=== PATIENT | male | born 1950 | race Caucasian/White ===

== ENCOUNTER 2019-09-01 00:23 | Day surgery (SDC) | payer BC, MEDICARE, SELFPAY ==
[2019-08-28 13:05] VITALS: BMI 24.5
[2019-09-01 10:19] VITALS: BMI 24.0
[2019-09-01] MEDS: LACTATED RINGERS 1,000 ML 150 ML IV CONT (10:33)
[2019-09-01 10:36] VITALS: BP 125/86; PULSE 81; RESP 18; TEMP 36.6; O2SAT 99; BMI 24.0
--- NOTE | 2019-09-01 11:07 | PM.HPGS ---
History of Present Illness History of Present Illness Consent: Risks, benefits, and alternatives have been discussed and questions answered. Patient agrees to proceed with procedure. Chief complaint: Neoplasm Screening/ Hx Colon Polyps Narrative: Darryl Collins is a 69 year old W male undergoing colonoscopy secondary history of colonic polyps. Patient had a colonoscopy 7 years ago however the bowel prep was extremely poor patient is to come back follow year but did not do so even after letter was sent. Patient is asymptomatic. There is no family history of colon polyps or colon cancer. [facility] Past Medical History Medical History History of ischemic stroke without residual deficits PAD (peripheral artery disease) Surgical History Surgical History History of facial surgery S/P CABG (coronary artery bypass graft) Family History Family History Mother Family history of lung cancer, Onset Age: 61 Family history of alcoholism Sibling Patient's sister is in good health Patient's brother is in good health Grandparent Family history of lung cancer, Onset Age: 66 Diabetes mellitus Other Depression Family history of allergic disorder Family history of irritable bowel syndrome Family history of thyroid disease Social History Social History Smoking status: Former smoker Tobacco type: smokeless tobacco Smoking end date: 07/12/17 Alcohol intake: never Substance use: current Substance use type: marijuana Meds Home Medications and Allergies Home Medications Medication Instructions Recorded Confirmed Type amitriptyline 100 mg tablet 100 mg PO .[facility] tablet 07/13/19 08/28/19 Rx finasteride 5 mg tablet 5 mg PO DAILY 07/25/19 08/28/19 History folic acid 1 mg tablet 1 mg PO DAILY 07/25/19 08/28/19 History lisinopril 20 mg tablet 20 mg PO DAILY 07/25/19 08/28/19 History sertraline 100 mg tablet 150 mg PO DAILY tablet 07/25/19 08/28/19 History aspirin 325 mg tablet 325 mg PO DAILY 07/26/19 08/28/19 History atorvastatin 40 mg PO DAILY 08/28/19 08/28/19 History Allergies Allergy/AdvReac Type Severity Reaction Status Date / Time No Known Allergies Allergy Verified 08/28/19 13:12 Vital Signs Vital Signs - 24 hr 09/01/19 10:36 Temperature 36.6 C Pulse Rate 81 Respiratory Rate 18 Blood Pressure 125/86 Pulse Oximetry 99 Exam Const: Orientation/consciousness: patient oriented x3 Resp: Auscultation: clear to auscultation bilaterally Cardio: Rate: regular rate Rhythm: regular rhythm Heart sounds: no murmurs GI: GI Palp: Yes Soft to palpation, No Tenderness to palpation present (GI), Yes No hepatosplenomegaly present and No Palpable mass present Auscultation: normal bowel sounds Neuro: General: patient oriented x3 and no focal motor deficits Extrem: General: no pedal edema Assessment and Plan Additional Plan Screening colonoscopy secondary history of colonic polyps and extremely poor bowel prep on previous exam
[2019-09-01 11:58] VITALS: BP 93/62; PULSE 65; RESP 16; O2SAT 95
[2019-09-01 12:08] VITALS: BP 103/65; PULSE 60; RESP 20; O2SAT 98
[2019-09-01 12:18] VITALS: BP 122/72; PULSE 60; RESP 20; O2SAT 98
[2019-09-01 12:28] VITALS: BP 120/70; PULSE 56; RESP 20; O2SAT 98
== END 2019-09-01 12:35 | disposition home or self-care (01) ==
PROVIDERS: PCP Family Medicine; Visit Provider Internal Medicine Gastroenterology
PROC: 0DJD8ZZ Inspection of Lower Intestinal Tract, Via Natural or Artificial Opening Endoscopic (ICD-10-PCS; CPT 45378; principal; 2019-09-01 11:30)
DX: Z12.11 Encounter for screening for malignant neoplasm of colon (principal); D12.0 Benign neoplasm of cecum; I73.9 Peripheral vascular disease, unspecified; Z86.73 Personal history of transient ischemic attack (TIA), and cerebral infarction without residual deficits; Z95.1 Presence of aortocoronary bypass graft; F12.90 Cannabis use, unspecified, uncomplicated; Z87.891 Personal history of nicotine dependence; Z79.82 Long term (current) use of aspirin
CPT/HCPCS: 45380; 88305; J2704; J7120

== ENCOUNTER 2020-03-20 21:37 | Emergency (ER) | payer BC, SELFPAY ==
--- NOTE | ~2020-03-20 | CT_ITS ---
EXAMINATION: CT abd pelvis lumbar wo con DATE: 03/21/2020 01:14 INDICATION: Right-sided abdominal and right flank pain, severe low back pain for 3 weeks TECHNIQUE: Computed tomography (CT) of the abdomen, pelvis and lumbar spine was performed without int ravenous contrast. Automated exposure control and iterative reconstruction technique were employed. E xam dose: 263.39 mGy-cm total exam DLP. COMPARISON: None FINDINGS: There are scattered mild patchy infiltrates involving the middle lobe, lingula and left low er lobe and discoid atelectasis or scarring at the lung bases bilaterally. Status post sternotomy. Normal heart size. No pericardial or pleural effusion. Small sliding hiatal hernia. The liver, gallbladder, bile ducts, spleen, pancreas and pancreatic duct are unremarkable. The right adrenal gland is unremarkable. There is hypertrophy or possibly a small likely adenoma of t he left adrenal gland.. No renal mass lesion is evident on this limited noncontrast examination. No urinary tract calculus or hydroureteronephrosis. The urinary bladder, seminal vesicles and prostate gland are unremarkable. Bilateral small fat-containing inguinal hernias. There is extensive calcification of the abdominal aorta and branches. Infrarenal fusiform abdominal a ortic aneurysm measuring up to 3.3 cm diameter. Bilateral common iliac artery stents. There is extens kamryn calcification of the iliac and femoral arteries. Normal appendix. There is a prominent of fecal material within the colon. Liquid stool is identified in the cecum and ascending colon. No bowel obstruction, bowel wall thickening, pneumatosis or intrape ritoneal free air is detected. There are bilateral pars interarticularis defects at L5-S1 with associated grade 1 anterolisthesis at L5-S1. Diffuse osteopenia. There is moderately prominent degenerative disc disease at L3-4, L4-5 and L5-S1, with posterior disc bulging at L3-4 and L4-5 as well as L5-S1. There is degenerative change at the apophyseal joints of the lumbar spine. No lumbar spine fracture is noted otherwise. IMPRESSION: Patchy bilateral lower lung pulmonary infiltrates, bilateral discoid atelectasis or scar ring at the lung bases Small sliding hiatal hernia Infrarenal 3.3 cm abdominal aortic aneurysm; bilateral common iliac artery stents Extensive atherosclerotic calcification Bilateral L5 pars intra-articular is defects with associated grade 1 anterolisthesis at L5-S1 Posterior disc bulging at L3-4 through L5-S1 Reviewed, dictated and finalized at [facility]. Reviewed, dictated and finalized at location A. IMPRESSION: Patchy bilateral lower lung pulmonary infiltrates, bilateral disco id atelectasis or scarring at the lung bases Small sliding hiatal hernia Infrarenal 3.3 cm abdominal aortic aneurysm; bilateral common iliac artery sten ts Extensive atherosclerotic calcification Bilateral L5 pars intra-articular is defects with associated grade 1 anterolist hesis at L5-S1 Posterior disc bulging at L3-4 through L5-S1
[2020-03-20 21:56] VITALS: BP 123/68; PULSE 83; RESP 16; TEMP 37.7; O2SAT 96
[2020-03-21] VITALS (9 sets, daily range): BP systolic 126–149; BP diastolic 68–104; PULSE 71–91; RESP 16–21; TEMP 36.6–36.7; O2SAT 94–100
--- NOTE | 2020-03-21 00:32 | ED.BACK ---
HPI - Back Pain/Injury General Chief Complaint: Back Pain/Injury Stated Complaint: lower back pain Time Seen by Provider: 03/21/20 00:27 History of Present Illness HPI Narrative: Lower back and abdominal pain for the past 3 weeks. Radiates into lower abdomen. Worse with movement. Additionally urinating frequently. No trauma, fever, nausea, dysuria, leg weakness. Related Data Home Medications Medication Instructions Recorded Confirmed lisinopril 20 mg tablet 20 mg PO DAILY 07/25/19 08/28/19 aspirin 325 mg tablet 325 mg PO DAILY 07/26/19 08/28/19 Allergies Allergy/AdvReac Type Severity Reaction Status Date / Time No Known Allergies Allergy Verified 03/29/20 12:41 Review of Systems Review of Systems: All systems reviewed & are unremarkable except as noted in HPI and below Constitutional: Constitutional: Denies fever(s) and Denies weakness ENT: Denies dizziness Cardiovascular: Cardiovascular: Denies chest pain Respiratory: Respiratory: Denies dyspnea Gastrointestinal: Gastrointestinal: Reports abdominal pain Genitourinary: Genitourinary: Denies dysuria and Reports urinary frequency Musculoskeletal: Musculoskeletal: Reports back pain Neurologic: Denies numbness and Denies weakness [facility] Past Medical History Medical History History of ischemic stroke without residual deficits PAD (peripheral artery disease) Surgical History Surgical History History of facial surgery S/P CABG (coronary artery bypass graft) Family History Family History Mother Family history of lung cancer, Onset Age: 61 Family history of alcoholism Sibling Patient's sister is in good health Patient's brother is in good health Grandparent Family history of lung cancer, Onset Age: 66 Diabetes mellitus Other Depression Family history of allergic disorder Family history of irritable bowel syndrome Family history of thyroid disease Social History Social History Smoking status: Former smoker Tobacco type: smokeless tobacco Smoking end date: 07/12/17 Alcohol intake: never Substance use: current Substance use type: marijuana Exam Const: General: no acute distress and alert Nutritional Appearance: thin Orientation/consciousness: patient oriented x3 HENMT: Head: normal to inspection Resp: Effort & Inspection: normal respiratory effort Auscultation: clear to auscultation bilaterally Cardio: Rate: regular rate Rhythm: regular rhythm GI: Other: Suprapubic tenderness Back/Spine/Pelvis: Other: bilateral lower lumbar tenderness Skin: General skin exam: normal color Neuro: General: patient oriented x3, no focal motor deficits and CN's II-XI intact bilaterally Speech: normal speech Gait exam (Neuro): Normal gait present Extrem: General: normal to inspection Course Vital Signs Vital signs: Vital Signs Temperature 37.7 C H 03/20/20 21:56 Pulse Rate 83 03/20/20 21:56 Respiratory Rate 16 03/20/20 21:56 Blood Pressure 123/68 03/20/20 21:56 Pulse Oximetry 96 03/20/20 21:56 Temperature 36.7 C 03/21/20 05:42 Pulse Rate 74 03/21/20 05:42 Respiratory Rate 16 03/21/20 05:42 Blood Pressure 133/86 03/21/20 05:42 Pulse Oximetry 97 03/21/20 05:42 MDM - Back Pain/Injury MDM Narrative Medical decision making narrative: CT show patchy infiltrates. He is denying any respiratory symptoms at this time. He has a 3.3 cm aortic aneurysm, which I do not suspect is the cause of his pain. Bedside US showed a moderate amount of urine in the bladder post void. He had some relief of his symptoms after santacruz placement. Differential Diagnosis Differential diagnosis: Likely strain of lumbar region and other; Unlikely pyelonephritis Medical Records Attestation:
[2020-03-21 01:06] LABS: Basophils Percent Auto 0.2 % (0.2-1.2); Immature Granulocyte Absolute 0.05 K/mm3 (0.00-0.031); Immature Granulocyte Percent A 0.6 % (0-0.5); Lymphocytes Absolute Auto 0.72 K/mm3 (0.9-3.2); Lymphocytes Percent Auto 8.7 % (18.3-44.2); Mean Corpuscular HGB Conc 34.3 g/dl (32-36); Mean Corpuscular Hemoglobin 28.2 pg (26-34); Mean Corpuscular Volume 82.4 fl (80-100); Mean Platelet Volume 9.4 fl (7.4-10.4); Monocytes Absolute Auto 0.6 K/mm3 (0.1-0.6); Monocytes Percent Auto 7.3 % (2.6-8.5); Neutrophils Absolute Auto 6.9 K/mm3 (1.3-6.7); Neutrophils Percent Auto 83.2 % (45.5-73.1); Platelet Count Result 310 k/mm3 (150-375); Red Blood Count 4.25 M/mm3 (4.6-6.20); White Blood Count 8.3 K/mm3 (4.5-10.0)
[2020-03-21] MEDS: SODIUM CHLORIDE 0.9% IV 1,000 ML 999 ML IV CONT (01:09)
[2020-03-21 01:19] LABS: Alanine Aminotransferase 20 U/L (4-50); Albumin Level 3.9 g/dL (3.5-5.1); Alkaline Phosphatase 100 U/L (38-126); Anion Gap 10 mmol/L (8-16); Aspartate Amino Transferase 41 U/L (17-59); Bilirubin,Total 0.7 mg/dL (0.2-1.3); Blood Urea Nitrogen 17 mg/dL (9-20); Calcium 8.5 mg/dL (8.4-10.2); Carbon Dioxide 24 mmol/L (22-30); Chloride 96 mmol/L (98-107); Estimated CRCL calculation 55 ml/min; Estimated Glomerular Filt Rate > 60; Glucose 127 mg/dL (75-110); Lipase 63 U/L (23-300); Potassium 3.6 mmol/L (3.4-5.0); Sodium 130 mmol/L (137-145)
[2020-03-21 03:34] LABS: Add Urine Microscopic? YES; Appearance Urine Clear (Clear); Bacteria Urine Trace /hpf; Bilirubin Urine Negative (Negative); Blood Urine Negative (Negative); Color Urine Yellow (Yellow); Glucose Urine UA Negative (Negative); Ketones Urine Negative (Negative); Leukocyte Esterase Ur Negative LEU/UL (Negative); Mucus Urine Few /lpf; Nitrate Urine Negative (Negative); Protein Urine 1+ mg/dL (Negative); RBC Urine 0-2 /hpf (0-2); Squamous Epithelial Cell Urine Rare /hpf (Few)
--- NOTE | 2020-03-21 05:25 | PC.NURSE ---
Dior drainge changed to leg bag--demonstration for care and emptying given. Patient voiced understanding
== END 2020-03-21 05:42 | disposition home or self-care (01) ==
PROVIDERS: Emergency Provider Emergency Medicine; PCP Family Medicine
DX: R33.9 Retention of urine, unspecified (principal); I25.10 Atherosclerotic heart disease of native coronary artery without angina pectoris; Z95.1 Presence of aortocoronary bypass graft; Z86.73 Personal history of transient ischemic attack (TIA), and cerebral infarction without residual deficits; I73.9 Peripheral vascular disease, unspecified; Z87.891 Personal history of nicotine dependence; R91.8 Other nonspecific abnormal finding of lung field; K44.9 Diaphragmatic hernia without obstruction or gangrene; I71.4 Abdominal aortic aneurysm, without rupture; M51.26 Other intervertebral disc displacement, lumbar region; M51.27 Other intervertebral disc displacement, lumbosacral region
CPT/HCPCS: 36415; 51702; 72133; 74176; 80053; 81001; 83690; 85025; 96360; 99284; J7030

== ENCOUNTER 2020-03-29 12:26 | Emergency (ER) | payer BC, SELFPAY ==
--- NOTE | ~2020-03-29 | XR_ITS ---
XR chest 1V portable 03/29/2020 14:11 Indication: Covid. Weakness. Procedure: AP portable chest Comparison: 09/14/2005 Findings: Status post median sternotomy for CABG. Heart size normal. Extensive bilateral interstitial infiltrates with focal consolidation left lung base. No pleural effusion or pneumothorax. Impression: 1: Extensive diffuse interstitial infiltration with focal consolidation left lung base which may repr esent a combination of edema, pneumonia and/or atelectasis. Reviewed, dictated and finalized at location B. Impression: 1: Extensive diffuse interstitial infiltration with focal consolidation left kasia ng base which may represent a combination of edema, pneumonia and/or atelectasi s.
[2020-03-29 12:34] VITALS: BP 149/96; PULSE 69; RESP 22; TEMP 36.8; O2SAT 100
[2020-03-29 13:33] VITALS: BP 165/108; PULSE 73; RESP 20; O2SAT 98
--- NOTE | 2020-03-29 13:33 | ED.GENADULT ---
HPI - General Adult General Chief complaint: Unspecified Stated complaint: covid + with weakness Time Seen by Provider: 03/29/20 12:28 Source: patient and family Limitations: no limitations History of Present Illness HPI narrative: 69-year-old male He was here about 9 days ago and had a Dior catheter placed for urinary retention He had URI symptoms and body aches a week ago and had a positive COVID test done at the [place] [facility] window 2 days after that Today he presented via EMS because of continued muscle aches which are mostly in his low back and also buttocks, and a headache Notably he continues to have a little bit of a cough but is nonproductive and he does not have shortness of breath No neck pain no neuro symptoms no GI symptoms He still has the Dior in to a leg bag Onset (ago): day(s) Location: back and buttocks Radiation: non-radiation Severity: moderate Related Data Home Medications Medication Instructions Recorded Confirmed lisinopril 20 mg tablet 20 mg PO DAILY 07/25/19 08/28/19 aspirin 325 mg tablet 325 mg PO DAILY 07/26/19 08/28/19 Allergies Allergy/AdvReac Type Severity Reaction Status Date / Time No Known Allergies Allergy Verified 03/29/20 12:41 Review of Systems Review of Systems: All systems reviewed & are unremarkable except as noted in HPI and below Constitutional: Constitutional: Denies chills, Reports fatigue, Denies fever(s), Denies headache(s) and Denies night sweats Eyes: Eyes: Denies change in vision, Denies loss of vision and Denies other visual disturbances ENT: Denies headache(s), Denies hoarseness, Denies epistaxis, Denies nasal congestion and Denies sore throat Cardiovascular: Cardiovascular: Denies chest pain, Denies leg edema, Denies palpitations and Denies dyspnea Respiratory: Respiratory: Reports cough, Denies dyspnea and Denies wheezing Gastrointestinal: Gastrointestinal: Denies abdominal pain, Denies diarrhea, Denies nausea and Denies vomiting Genitourinary: Genitourinary: Denies hematuria, Reports dysuria and Denies urinary frequency Musculoskeletal: Musculoskeletal: Denies abnormal gait, Reports back pain, Denies deformity, Reports arthralgias, Denies joint swelling, Denies muscle weakness and Denies numbness Integumentary/Breasts: Skin/Breast: Denies rash, Denies unusual bruising and Denies wounds Neurologic: Denies abnormal gait, Denies headache(s), Denies focal weakness, Denies loss of vision and Denies numbness Psychiatric: Psychiatric: Reports no additional psychiatric complaints Endocrine: Endocrine: Denies fatigue and Denies palpitations Hematologic/Lymphatic: Hematologic/Lymphatic: Denies easy bleeding and Denies easy bruising Allergic/Immunologic: Allergic/Immunologic: Denies wheezing [facility] Social History Social History Smoking status: Former smoker Tobacco type: smokeless tobacco Smoking end date: 07/12/17 Alcohol intake: never Substance use: current Substance use type: marijuana Exam Const: General: no acute distress and well developed Nutritional Appearance: thin Orientation/consciousness: patient oriented x3 (alert) and Other orientation findings (Alert) HENMT: Head: normocephalic and atraumatic Ears: external ears normal General nose exam: No nasal discharge present and no epistaxis Face and sinus: face symmetric Mouth: Yes tongue normal and Yes moist mucous membranes Throat: other (No exudate, no erythema) Eyes: Conjunctivae: conjunctivae normal Sclera: sclerae normal EOM: EOMs intact bilaterally Neck: Neck: full ROM, no lymphadenopathy and supple Thyroid: thyroid normal Chest: Chest palpation & inspection: no tenderness Resp: Effort & Inspection: normal respiratory effort Auscultation: clear to auscultation bilaterally, no rales, no rhonchi, no wheezes and other (breath sounds equal) Cardio: Rate: regular rate Rhythm: regular rhythm
[2020-03-29 13:40] LABS: Basophils Percent Auto 0.3 % (0.2-1.2); Eosinophils Absolute Auto 0.1 K/mm3 (0-0.3); Eosinophils Percent Auto 0.9 % (0-4.4); Hematocrit 31.7 % (42.0-52.0); Hemoglobin 10.8 g/dL (14.0-18.0); Immature Granulocyte Percent A 0.9 % (0-0.5); Lymphocytes Absolute Auto 0.81 K/mm3 (0.9-3.2); Mean Corpuscular HGB Conc 34.1 g/dl (32-36); Mean Corpuscular Volume 82.1 fl (80-100); Mean Platelet Volume 8.4 fl (7.4-10.4); Monocytes Absolute Auto 0.7 K/mm3 (0.1-0.6); Monocytes Percent Auto 5.6 % (2.6-8.5); Neutrophils Percent Auto 85.3 % (45.5-73.1); Platelet Count Result 587 k/mm3 (150-375); Red Blood Count 3.86 M/mm3 (4.6-6.20); Red Cell Distribution Width 14.6 % (11.5-14.5); White Blood Count 11.7 K/mm3 (4.5-10.0)
[2020-03-29 13:49] LABS: Alveolar/Arterial O2 Gradient 35.8 mmHg; Base Excess ABG -3.3 mEq/l (+/-2.0); Fractional Inspired Oxygen 21 %; HCO3 ABG 17.8 mEq/l (22.0-26.0); Oxygen Content ABG 15.1 %vol (16.0-22.0); Oxygen Saturation ABG 97.7 % (95.0-100.0); Oxyhemoglobin 96.3 % THb (90.0-100.0); PO2 ABG 88.2 mmHg (80.0-100.0); Total Hemoglobin 11.1 g/dL (12.0-18.0)
[2020-03-29 13:51] LABS: Anion Gap 9 mmol/L (8-16); Blood Urea Nitrogen 12 mg/dL (9-20); Calcium 8.8 mg/dL (8.4-10.2); Carbon Dioxide 23 mmol/L (22-30); Chloride 100 mmol/L (98-107); Estimated Glomerular Filt Rate > 60; Glucose 118 mg/dL (75-110); Potassium 3.5 mmol/L (3.4-5.0); Sodium 132 mmol/L (137-145)
[2020-03-29 13:51] LABS: pH ABG 7.535 (7.350-7.450)
[2020-03-29 13:52] LABS: Device ROOM AIR; PCO2 ABG 21.5 mmHg (35.0-45.0); Site Drawn RIGHT BRACHIAL
[2020-03-29 13:52] LABS: Add Urine Microscopic? YES; Appearance Urine Cloudy (Clear); Bilirubin Urine Negative (Negative); Blood Urine 2+ (Negative); Color Urine Amber (Yellow); Glucose Urine UA Negative (Negative); Ketones Urine 1+ mg/dL (Negative); Leukocyte Esterase Ur 2+ LEU/UL (Negative); Mucus Urine Rare /lpf; Nitrate Urine Positive (Negative); Protein Urine 2+ mg/dL (Negative); Specific Grav Ur 1.023 (1.001-1.035); WBC Urine 0-3 /hpf
--- NOTE | 2020-03-29 15:31 | PCCCNOTE ---
Spoke with Mr Collins regarding his concerns for being discharged to home. Discussed how Covid is, per Dr Hdez, causing his body aches. Pt requested a glass of water which he drank immediately. Encouraged patient to follow his discharge instructions including drinking adequate fluids and following up with his personal physician as directed. Pt states that he tried to follow up after his last ED visit and was told by his physician that he would not be able to be seen for 2 weeks. Encouraged patient to tell the appointment desk that he had been seen in the ED and was to be seen by his physician within the prescribed number of days. Pt states he did not tell the appointment desk the last time he called there. Pt requests to have his santacruz catheter removed. This information relayed to Dr Hdez
[2020-03-29 16:40] VITALS: BP 132/82; PULSE 70; RESP 20; O2SAT 99
== END 2020-03-29 16:30 | disposition home or self-care (01) ==
PROVIDERS: Emergency Provider Emergency Medicine; PCP Family Medicine
DX: U07.1 COVID-19 (principal); R33.9 Retention of urine, unspecified; Z87.891 Personal history of nicotine dependence
CPT/HCPCS: 36415; 36600; 71045; 80048; 81001; 82805; 85025; 99283

== ENCOUNTER 2020-04-17 14:16 | Outpatient (CLI) | payer BC, SELFPAY ==
[2020-04-17 15:32] LABS: Alanine Aminotransferase 173 U/L (4-50); Albumin Level 3.6 g/dL (3.5-5.1); Alkaline Phosphatase 127 U/L (38-126); Anion Gap 11 mmol/L (8-16); Aspartate Amino Transferase 194 U/L (17-59); Bilirubin,Total 0.4 mg/dL (0.2-1.3); Blood Urea Nitrogen 19 mg/dL (9-20); Calcium 9.6 mg/dL (8.4-10.2); Carbon Dioxide 24 mmol/L (22-30); Chloride 97 mmol/L (98-107); Estimated Glomerular Filt Rate > 60; Glucose 180 mg/dL (75-110); Potassium 3.8 mmol/L (3.4-5.0); Sodium 132 mmol/L (137-145)
== END 2020-04-17 14:17 | disposition home or self-care (01) ==
PROVIDERS: PCP Family Medicine; Visit Provider Nurse Practitioner Family
DX: E87.1 Hypo-osmolality and hyponatremia (principal)
CPT/HCPCS: 36415; 80053

== ENCOUNTER 2020-04-25 09:12 | Outpatient (CLI) | payer BC, SELFPAY ==
--- NOTE | ~2020-04-25 | US_ITS ---
EXAMINATION: US right upper quadrant DATE: 04/25/2020 09:49 INDICATION: Elevated liver enzymes TECHNIQUE: Multiple grayscale and Doppler ultrasound images of the abdomen were obtained. COMPARISON: 09/28/2012; CT, 03/21/2020 FINDINGS: The head and and body of the pancreas are normal. The pancreatic tail is obscured by bowel gas. The liver is normal with normal echogenicity and echotexture. No surface nodularity. Normal hepa topetal flow in the main portal vein. The gallbladder is normal with no abnormal wall thickening, per icholecystic fluid or stones. The normal common bile duct measures 4 mm. There was no sonographic Mur phy sign. IMPRESSION: 1. Normal sonographic study of the gallbladder. Reviewed, dictated and finalized at location A.
== END 2020-04-25 09:13 | disposition home or self-care (01) ==
PROVIDERS: PCP Family Medicine; Visit Provider Family Medicine
DX: R74.8 Abnormal levels of other serum enzymes (principal)
CPT/HCPCS: 76705

== ENCOUNTER 2020-05-06 08:51 | Outpatient (CLI) | payer BC, SELFPAY ==
--- NOTE | ~2020-05-06 | MR_ITS ---
EXAMINATION: MR brain/brain stem wo con DATE: 05/06/2020 10:14 INDICATION: Abnormal involuntary movement. TECHNIQUE: Magnetic resonance imaging (MRI) of the brain and brainstem was performed without intraven ous contrast. Sequences included sagittal and axial T1-weighted FSE, axial diffusion-weighted FS EPI, axial T2*-weighted GRE, axial T2-weighted FLAIR Propeller, and axial T2-weighted Propeller. Apparent diffusion coefficient (ADC) maps were created. COMPARISON: None. FINDINGS: There is no intracranial hemorrhage, acute infarction, or abnormal intracranial mass lesion . There is an old infarct in inferior left cerebellum. There is an old lacunar infarct in right thala mus. There is a small area of cystic encephalomalacia in the right frontal lobe deep white matter. Th ere are scattered areas of nonspecific increased T2-weighted signal intensity in the cerebral white m atter and april. The ventricles are normal in size. The orbits are normal. The mastoid air cells are n ormal. IMPRESSION: 1. Old infarcts in the left cerebellum, right thalamus, and right frontal lobe. 2. Mild nonspecific cerebral white matter disease and pontine disease, which likely represents chroni c small vessel ischemic disease. Reviewed, dictated and finalized at location A. IMPRESSION: 1. Old infarcts in the left cerebellum, right thalamus, and right frontal lobe. 2. Mild nonspecific cerebral white matter disease and pontine disease, which mel francis represents chronic small vessel ischemic disease.
== END 2020-05-06 08:52 | disposition home or self-care (01) ==
PROVIDERS: PCP Family Medicine; Visit Provider Psychiatry & Neurology Neurology
DX: R25.9 Unspecified abnormal involuntary movements (principal); R93.0 Abnormal findings on diagnostic imaging of skull and head, not elsewhere classified
CPT/HCPCS: 70551

== ENCOUNTER 2020-05-06 09:42 | Outpatient (CLI) | payer BC, SELFPAY ==
--- NOTE | 2020-05-07 09:42 | WPDNEUROLOGY ---
Neurology EEG Report General Information Date of Study: 05/06/20 TEST eeg DIAGNOSIS Abnormal involuntary movements CONDITION OF RECORDING drowsy and sleep EEG NUMBER [id number] CLINICAL HISTORY complains of abnormal movements EEG DESCRIPTION basic resting occipital frequency consists of large amount of well-organized low to medium voltage 9 to 11 hertz per second alpha admixed with low-voltage 15 to 18 hertz per second beta. During drowsiness low-voltage beta activity seen diffusely admixed with waxing and waning posterior alpha rhythm. Hyperventilation not done. Photic stimulation produced normal drive. Non paroxysmal. Nonfocal. Nonlateralizing. IMPRESSION Normal EEG
== END 2020-05-06 09:43 | disposition home or self-care (01) ==
LOC: ANHNEURO 09:43
PROVIDERS: PCP Family Medicine; Visit Provider Psychiatry & Neurology Neurology
DX: R25.9 Unspecified abnormal involuntary movements (principal)
CPT/HCPCS: 95816

== ENCOUNTER 2021-01-14 15:59 | Outpatient (CLI) | payer BC, SELFPAY ==
--- NOTE | ~2021-01-14 | CT_ITS ---
EXAMINATION: CT lung screening DATE: 01/14/2021 16:20 INDICATION: History of nicotine dependence TECHNIQUE: Computed tomography (CT) of the chest was performed without intravenous contrast. The dose -length product was 68.01 mGy-cm. Automated exposure control and iterative reconstruction technique w ere employed. COMPARISON: Chest x-ray dated 8 03/29/2020 FINDINGS: There is atherosclerosis of the aorta, great vessels and coronary arteries. No evidence for aneurysm. No thoracic lymphadenopathy. No significant pleural or pericardial effusion. Thyroid gland appears atrophic. There is severe emphysema. No endobronchial lesions. There is right lower lobe ate lectasis/scarring. There is lingular atelectasis/scarring. There is a small 2-3 mm right upper lobe n odule, not clearly calcified. There are small pulmonary nodules measuring 2 mm or less in the upper l obes. No pneumothorax. No endobronchial lesions. Mild thoracic spondylosis. Status post median sterno lauren for CABG. No acute osseous abnormality. IMPRESSION: 1. Lung-RADS category 2: Benign appearance or behavior. Continue annual screening with noncontrast lo w-dose chest CT in 12 months. Reviewed, dictated and finalized at location A. IMPRESSION: 1. Lung-RADS category 2: Benign appearance or behavior. Continue annual screeni ng with noncontrast low-dose chest CT in 12 months.
== END 2021-01-14 16:00 | disposition home or self-care (01) ==
PROVIDERS: PCP Family Medicine; Visit Provider Family Medicine
DX: Z87.891 Personal history of nicotine dependence (principal)
CPT/HCPCS: 71271

== ENCOUNTER 2022-03-25 11:13 | Outpatient (CLI) | payer BC, SELFPAY ==
--- NOTE | ~2022-03-25 | XR_ITS ---
EXAMINATION: XR chest 2V Exam Date/Time: 03/25/2022 11:38 CDT HISTORY: R05.9 - Cough, RT SIDE MASS? SOB Comparison: 03/29/2020. RESULT: Lines, tubes, and devices: Intact sternotomy wires. Mediastinal vascular clips.. Lungs and pleura: Biapical pleural scarring. Senescent and emphysematous change. Cardiomediastinal silhouette: Stable. Other: No acute osseous or upper abdominal finding. IMPRESSION: No acute cardiopulmonary process. Reviewed, dictated and finalized at location K.
== END 2022-03-25 11:14 | disposition home or self-care (01) ==
PROVIDERS: PCP Family Medicine; Visit Provider Nurse Practitioner Family
DX: J43.9 Emphysema, unspecified (principal); R05.9 Cough, unspecified; R06.02 Shortness of breath
CPT/HCPCS: 71046

== ENCOUNTER 2022-12-16 18:20 | Emergency (ER) | payer BC, SELFPAY ==
[2022-12-16] VITALS (7 sets, daily range): BP systolic 108–117; BP diastolic 72–90; PULSE 54–106; RESP 16–21; TEMP 36.6–36.7; O2SAT 95–97
--- NOTE | ~2022-12-16 | CT_ITS ---
EXAMINATION: CT brain wo con INDICATION: Headache COMPARISON: None TECHNIQUE: Standard unenhanced head CT. The dose-length product (DLP) was 1059.33 mGy-cm. The mA was adjusted according to patient size. Iterative reconstruction technique was employed. FINDINGS: There is no acute intraparenchymal hemorrhage. No evidence of mass lesion. No evidence of a cute infarction. There are old infarcts of the left cerebellum. There is mild periventricular and sub cortical hypodensity probably related to small vessel ischemic disease. There is mild prominence of t he sulci and ventricles related to cerebral atrophy. Intracranial calcified cerebral atherosclerosis is noted. There are no extra-axial collections. There is no mass effect or midline shift. The orbits and soft tissues are unremarkable. The visualized sinuses and mastoid air cells are well aerated. IMPRESSION: 1. Old left cerebellar infarcts without acute intracranial abnormality. 2. Age related findings. Reviewed, dictated and finalized at location F.
[2022-12-16] MEDS: SODIUM CHLORIDE 0.9% IV 1,000 ML 999 ML IV CONT (19:30)
--- NOTE | 2022-12-16 19:35 | ED.GENADULT ---
HPI - General Adult General Chief complaint: Dizziness Stated complaint: dizziness Time Seen by Provider: 12/16/22 18:36 History of Present Illness HPI narrative: 72-year-old male history of coronary disease presented to the ED for evaluation of increased dizziness. Patient states he was out for a walk today and had onset of dizziness. Patient states he does not feel that he is going to pass out but does describe a spinning sensation. Patient denies any falls or injuries. Patient states he has been eating and drinking okay. Related Data Allergies Allergy/AdvReac Type Severity Reaction Status Date / Time No Known Allergies Allergy Verified 12/16/22 18:35 Review of Systems Review of Systems: All systems reviewed & are unremarkable except as noted in HPI and below PMFSH Past Medical History Medical History AAA (abdominal aortic aneurysm) History of ischemic stroke without residual deficits Hypertension with heart disease PAD (peripheral artery disease) Surgical History Surgical History History of facial surgery S/P CABG (coronary artery bypass graft) Family History Family History Mother Family history of lung cancer, Onset Age: 61 Family history of alcoholism Sibling Patient's sister is in good health Patient's brother is in good health Grandparent Family history of lung cancer, Onset Age: 66 Diabetes mellitus Other Depression Family history of allergic disorder Family history of irritable bowel syndrome Family history of thyroid disease Social History Social History Smoking packs per day: 1.5 Smoking cigarettes per day: 30.0 Years smoked: 62 Smoking pack-years: 93.00 Smoking status: Former smoker Tobacco type: cigarettes and e-cigarettes/vaping Second hand tobacco smoke exposure: Yes Smoking end date: 07/12/17 Alcohol intake: never Substance use: current Substance use type: marijuana Living arrangements: with family Occupation/Education: retired Gender identity (if verbalized by the patient): Male Exam Narrative: APPEARANCE: Well appearing, no pain, no distress, well-nourished. HEAD: normocephalic, atraumatic. EYES: PERRLA/EOMI, conjunctivae clear. NOSE: Normal no drainage EARS:TMS clear with good light reflex. THROAT: Pharynx clear, no exudate. NECK: Supple. No adenopathy, no masses. RESPIRATORY: Airway patent, respirations nonlabored. Clear to auscultation bilaterally, no rales, rhonchi, wheezing. CARDIOVASCULAR: Regular rate and rhythm without murmurs rubs or gallops. ABDOMINAL: Soft, nontender, nondistended, normal bowel sounds MUSCULOSKELETAL: Moves all extremities. Strength/ROM intact, No edema, No calf tenderness. NEURO: Alert. Cranial nerves II through XII intact. Dizziness was induced SKIN: Warm, dry. Normal Color Course Course Emergency Course: 72year-old male presented emerged department for evaluation of dizziness. Patient's orthostatic vital signs were normal. Patient was afebrile with no leukocytosis and a stable hemoglobin. Patient was mildly hypokalemic and this was replaced orally. UA showed no significant evidence of infection. Head CT showed no acute intracranial abnormality. Patient did feel improved with meclizine. Patient and family were updated on the results of the work-up and on reasons to return to the emergency department and the importance of close follow-up with his primary care physician. Patient was provided meclizine as needed for vertigo symptoms. All questions concerns were addressed. Vital Signs Vital signs: Vital Signs Pulse Rate 106 H 12/16/22 18:25 Respiratory Rate 16 12/16/22 18:25 Blood Pressure 111/90 12/16/22 18:25 Pulse Oximetry 95 12/16/22 18:25 Oxygen Georges
[2022-12-16] MEDS: MECLIZINE HCL 25 MG TABLET PO (19:56)
[2022-12-16 20:09] LABS: Basophils Absolute Auto 0.1 K/mm3 (0.0-0.1); Eosinophils Absolute Auto 0.1 K/mm3 (0-0.3); Eosinophils Percent Auto 1.4 % (0-4.4); Hematocrit 37.8 % (42.0-52.0); Hemoglobin 12.5 g/dL (14.0-18.0); Immature Granulocyte Absolute 0.03 K/mm3 (0.00-0.031); Immature Granulocyte Percent A 0.3 % (0-0.5); Lymphocytes Absolute Auto 2.29 K/mm3 (0.9-3.2); Lymphocytes Percent Auto 24.3 % (18.3-44.2); Mean Corpuscular HGB Conc 33.1 g/dl (32-36); Mean Corpuscular Hemoglobin 27.2 pg (26-34); Mean Corpuscular Volume 82.4 fl (80-100); Monocytes Absolute Auto 0.7 K/mm3 (0.1-0.6); Monocytes Percent Auto 7.2 % (2.6-8.5); Neutrophils Absolute Auto 6.2 K/mm3 (1.3-6.7); Neutrophils Percent Auto 65.8 % (45.5-73.1); Platelet Count Result 398 k/mm3 (150-375); Red Blood Count 4.59 M/mm3 (4.6-6.20); Red Cell Distribution Width 15.3 % (11.5-14.5); White Blood Count 9.4 K/mm3 (4.5-10.0)
[2022-12-16 20:10] LABS: Appearance Urine Clear (Clear); Bilirubin Urine Negative (Negative); Blood Urine Negative (Negative); Color Urine Yellow (Yellow); Glucose Urine UA Negative (Negative); Ketones Urine Negative (Negative); Leukocyte Esterase Ur Negative LEU/UL (Negative); Nitrate Urine Negative (Negative); Protein Urine Negative (Negative); Specific Grav Ur 1.005 (1.001-1.035)
[2022-12-16 20:12] LABS: Add Urine Microscopic? NO
[2022-12-16 20:33] LABS: Alanine Aminotransferase 14 U/L (6-50); Alkaline Phosphatase 96 U/L (38-126); Anion Gap 5 mmol/L (8-16); Aspartate Amino Transferase 23 U/L (17-59); Bilirubin,Total 0.5 mg/dL (0.2-1.3); Blood Urea Nitrogen 8 mg/dL (9-20); Calcium 8.7 mg/dL (8.4-10.2); Carbon Dioxide 27 mmol/L (22-30); Chloride 106 mmol/L (98-107); Estimated CRCL calculation 61 ml/min; Estimated Glomerular Filt Rate > 60; Glucose 102 mg/dL (65-110); Potassium 3.2 mmol/L (3.4-5.0); Sodium 138 mmol/L (137-145)
[2022-12-16] MEDS: POTASSIUM CHLORIDE 20 MEQ PACKET (FOR LIQUID) 40 MEQ PO (21:02)
== END 2022-12-16 21:11 | disposition home or self-care (01) ==
PROVIDERS: Emergency Provider Emergency Medicine; PCP Family Medicine
DX: R42 Dizziness and giddiness (principal); I25.10 Atherosclerotic heart disease of native coronary artery without angina pectoris; I11.9 Hypertensive heart disease without heart failure; I73.9 Peripheral vascular disease, unspecified; Z95.1 Presence of aortocoronary bypass graft; Z86.73 Personal history of transient ischemic attack (TIA), and cerebral infarction without residual deficits; Z87.891 Personal history of nicotine dependence
CPT/HCPCS: 36415; 70450; 80053; 81003; 85025; 96360; 99284; A9270; J7030

== ENCOUNTER 2025-01-16 18:29 | Emergency (ER) | payer BC, SELFPAY ==
--- NOTE | ~2025-01-16 | CT_ITS ---
History: Fall PROCEDURE: CT head without contrast. COMPARISON: None 12/16/2022 TECHNIQUE: Axial imaging of the head performed from the skull base to the vertex without IV contrast. Sagittal a nd coronal reformations obtained. Examination is somewhat limited secondary to motion artifact. DLP: 1210 mGy-cm FINDINGS: The ventricles are enlarged. The dilatation of the ventricles is proportional to the degree of sulcal prominence, not uncommon in the senescent brain. Decreased attenuation is identified within the periventricular white matter, likely secondary to micr ovascular ischemic disease, in a patient of this age. There is no mass, mass effect or midline shift. There is no abnormal extra-axial fluid collection or large intracranial hemorrhage. Visualized paranasal sinuses are clear. The mastoid air cells are well aerated. No acute displaced fractures within the overlying cranium. Impression: No large acute intracranial hemorrhage or suspicious mass effect. Reviewed, dictated and finalized at location A. Impression: No large acute intracranial hemorrhage or suspicious mass effect.
[2025-01-16 18:35] VITALS: BP 130/89; PULSE 60; RESP 18; TEMP 37; O2SAT 100
--- NOTE | 2025-01-16 19:14 | PC.NURSE ---
Upon inspection, no trauma to pt. head. Pt. states he is in no pain. Pt. is A&Ox2, which family at bedside states is baseline for him.
--- OUTSIDE RECORDS SUMMARY | 2025-01-16 19:41 | XMS_ITS | Clinical Summary ---
Author Organization [employer] [address] [facility] Address [address] [place] [address] Care Team Providers Care Society Reporter Name Role Phone Lebron Storm MD Primary Care Provider [phone] Allergies No known active allergies Medications amitriptyline (ELAVIL) 100 mg tablet Take 1 Tablet by mouth daily. 3 9 Active aspirin (MAURICE) 325 mg tablet Take 325 mg by mouth daily. Active sertraline (ZOLOFT) 50 mg tablet Take 1 Tablet by mouth daily. 1 9 Active sertraline (ZOLOFT) 100 mg tablet Take 150 mg by mouth daily. 3 9 Active Folic Acid 20 mg Capsule Take 1 mg by mouth daily. Active finasteride (PROSCAR) 5 mg tablet Take 5 mg by mouth daily. 2 9 Active atorvastatin (LIPITOR) 40 mg tablet Take 1 Tablet (40 mg) by mouth daily. 30 Tablet 0 Active albuterol sulfate 90 mcg/actuation metered powder inhaler Take 2 Puffs by inhalation every 6 hours as needed for Shortness of Breath. Active tamsulosin (FLOMAX) 0.4 mg capsule Take 1 Capsule (0.4 mg) by mouth daily after supper. 30 Capsule 0 Active acetaminophen (TYLENOL) 325 mg tablet Take 2 Tablets (650 mg) by mouth every 6 hours as needed for Other (See Comment) (See admin instructions). 0 Active gabapentin (NEURONTIN) 100 mg capsule TAKE 1 CAPSULE BY MOUTH THREE TIMES A DAY 0 Active QUEtiapine (SEROquel) 25 mg tablet Take 25 mg by mouth daily at bedtime. 0 Active clopidogreL (PLAVIX) 75 mg Tablet Take 1 Tablet (75 mg) by mouth daily. 90 Tablet 5 0 Active lisinopriL (PRINIVIL) 20 mg tablet TAKE 1 TABLET BY MOUTH EVERY DAY 90 Tablet 1 1 Active Active Problems Patient Care Coordination No te Formatting of this note migh t be different from the original. Sheet Metal Duct Installer: Dr Diane Serrano MD Problem Noted Date Diagnosed Date Protein-calorie malnutrition, severe 04/04/2020 Atherosclerosis of coronary artery bypass graft of [place] heart without angina pectoris 04/03/2020 HTN (hypertension), benign 04/03/2020 Weakness 04/03/2020 PVD (peripheral vascular disease) 04/03/2020 Hypercholesteremia 04/03/2020 Poorly-controlled hypertension 04/03/2020 Movement disorder 04/03/2020 Hyponatremia 04/03/2020 Elevated liver enzymes 04/03/2020 S/P CABG (coronary artery bypass graft) 04/03/20 20 Reactive thrombocytosis 04/03/2020 Chronic anemia 04/03/2020 Leukocytosis (leucocytosis) 04/03/2020 History of 2019 novel coronavirus disease (COVID -19) 04/03/2020 History of stroke without residual deficits 03/13 Frequent falls 04/03/2020 COVID-19 virus infection Chorea Myoclonic jerking Anemia of chronic disease Balance disorder Social History Tobacco Use Types Packs/Day Years Used Date Smoking Tobacco: Former Smokeless Tobacco: Never Alcohol Use Standard Drinks/Week Comments No 0 (1 standard drink = 0.6 oz pur e alcohol) Sex and Gender Information Value Date Recorded Sex Assigned at Not on file 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 Gender Identity Not on file Sexual Orientation Not on file Last Filed Vital Signs Vital Sign Reading Time Taken Comments Blood Pressure 118/64 05/27/2020 11:11 AM OPTICAL INSTRUMENT INSPECTOR Pulse 84 04/15/2020 2:05 PM CDT Temperature 36.7 C (98 F) 04/15/2020 2:05 PM CDT Respiratory Rate 18 04/15/2020 2:05 PM CDT Oxygen Saturation 100% 04/15/2020 2:05 PM CDT Inhaled Oxygen Concentration - - Weight 56.2 kg (124 lb) 05/27/2020 11:11 AM OPTICAL INSTRUMENT INSPECTOR Height 163.8 cm (5' 4.5) 05/27/2020 11:11 AM CS T Body Mass Index 20.96 05/27/2020 11:11 AM OPTICAL INSTRUMENT INSPECTOR Plan of Treatment Health Maintenance Due Date Last Done Comments DTAP/TDAP/TD VACCINES (1 - Tdap) 1971 COLORECTAL SCREENING 1997 Colorectal Cancer Screening 1997 FIT-DNA Q 3 years 1997 FIT/FOBT Q 1 year 1997 Flex Sig/CT Colonography Q 5 years 1997 PNEUMOCOCCAL VACCINE 50+ YEARS (1 of 1 - PCV) 08/27/19 03 ZOSTER VACCINE (1 of 2) 2002 RSV VACCINE (60+ or ) (1 - Risk 60-74 years 1-dose series) 2012 INFLUENZA VACCINE (#1) 2025 Insurance MEDICARE PART A HOSPITAL ONLY BCBS BLUE PREFERRED RX [facility] Commercial RX [employer] (INTERNAL) [facility] Internal Plans Advance Directives For more information, please contact: [phone] * Full Code (Latest Code Status on File) Date Activated Date Inactivated Comments 04/03/2020 8:17 PM 04/15/2020 6:31 PM Care Teams Society Reporter Relationship Specialty Start Date End Date Lebron Storm MD [address] [facility] [address] [place] [id number] PCP - General Family Practice 07/27/18
--- OUTSIDE RECORDS SUMMARY | 2025-01-16 19:41 | XMS_ITS | Encounter Summary ---
Author Organization [facility] Address [address] [place] [address] Care Team Providers Care Community Development Worker Name Role Phone Lebron Storm MD Primary Care Provider [phone] Reason for Visit * Reason Onset Date Comments ABNORMAL MUSCLE MOVEMENT 04/04/2020 LEFT ME SSAGE WITH MARKUS AT [facility] Encounter Details Date Type Department Care Team (Late st Contact Info) Description 04/04/2020 Telephone [facility] Admitting [address] [place] [address] [place] [address] [address] ABNORMAL MUSCLE MOVEMENT (LEFT MESSAGE WITH MARKUS AT 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 No / Unsure 04/03/2020 2:36 PM CDT documented as of this encounter Plan of Treatment Not on file documented as of this encounter Visit Diagnoses Not on filedocumented in this encounter Additional Health Concerns Infection Onset Date Last Indicated Resolved Time COVID-19 Comment:Tested at OSH Resolved: symptoms resolved; >20 days isolation completed 03/22/2020 04/04/2020 04/15/2020 7:29 AM CDT documented as of this encounter Care Teams Community Development Worker Relationship Specialty Start Date End Date Lebron Storm MD [address] [facility] [address] [place] [id number] PCP - General Family Practice 07/27/18 documented as of this encounter
--- OUTSIDE RECORDS SUMMARY | 2025-01-16 19:41 | XMS_ITS | Clinical Summary ---
Author Organization [facility] Address [address] [place] [address] Care Team Providers Care Store Worker Name Role Phone Lebron Storm MD Primary Care Provider [phone] Lebron Storm MD Unavailable [phone] Naga Serrano MD Unavailable [phone] Source Comments [facility],non-owned Affiliates and Associated Physician Practices is amultiple site organization consisting of ambulatory clinics and hospital sitesin [place], [place] and [place]. This disclosure is being madepursuant to the Care Everywhere program and may not contain all information available regarding this patient. Last updated 18.[facility] Allergies No known active allergies Medications * Be aware that medications may not be up to date on this document. Alwaysverify current medications with the patient. aspirin (ASPIRIN) 325 MG tablet Take 325 mg by mouth once daily Active lisinopril (PRINIVIL; ZESTRIL) 20 MG tablet Take 20 mg by mouth once daily Active gabapentin (NEURONTIN) 100 MG capsule Take 100 mg by mouth 3 times daily Active amitriptyline (ELAVIL) 50 MG tablet Take 50 mg by mouth at bedtime Active bethanechol (URECHOLINE) 25 MG tablet Take 25 mg by mouth 2 times daily Active sertraline (ZOLOFT) 100 MG tablet Take 100 mg by mouth at bedtime Active folic acid (FOLVITE) 1 MG tablet Take 1 mg by mouth once daily Active atorvastatin (LIPITOR) 40 MG tablet Take 40 mg by mouth at bedtime Active clopidogrel (PLAVIX) 75 MG tablet Take 75 mg by mouth once daily Active finasteride (PROSCAR) 5 MG tablet Take 5 mg by mouth once daily Active docusate sodium (COLACE) 100 MG capsule Take 1 (one) capsule by mouth once daily 09/03/2020 Active QUEtiapine (SEROQUEL) 25 MG tablet Take 25 mg by mouth at bedtime Active Active Problems Problem Noted Date Diagnosed Date Physical deconditioning 09/03/2020 Unsteady gait 09/01/2020 Cerebrovascular accident (CVA) 09/01/2020 PVD (peripheral vascular disease) 02/01/2018 Chest tightness 06/19/2014 CAD (coronary artery disease) 06/19/2014 Hypercholesterolemia 06/19/2014 Family History Medical History Relation Name Comments CAD (Coronary Artery Disease) Neg Hx Relation Name Status Comments Father Mother Social History Tobacco Use Types Packs/Day Years Used Date Smoking Tobacco: Some Days Smokeless Tobacco: Never Tobacco Cessation:Ready to Q uit: Yes; Counseling Given: Yes Alcohol Use Standard Drinks/Week Comments No 0 (1 standard drink = 0.6 oz pur e alcohol) Sex and Gender Information Value Date Recorded Sex Assigned at Not on file Legal Sex Male 10:55 PM ASSISTANT HVAC MECHANIC Gender Identity Not on file Sexual Orientation Not on file 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 Not on file Not on file Not on file Last Filed Vital Signs Vital Sign Reading Time Taken Comments Blood Pressure 114/72 09/05/2020 8:21 AM ASSISTANT HVAC MECHANIC Pulse 64 09/05/2020 8:21 AM ASSISTANT HVAC MECHANIC Temperature 36.4 C (97.6 F) 09/05/2020 8:21 AM ASSISTANT HVAC MECHANIC Respiratory Rate 20 09/05/2020 8:21 AM ASSISTANT HVAC MECHANIC Oxygen Saturation 98% 09/05/2020 8:21 AM ASSISTANT HVAC MECHANIC Inhaled Oxygen Concentration - - Weight 52.1 kg (114 lb 12.8 oz) 09/01/2020 5:08 AM ASSISTANT HVAC MECHANIC Height 165.1 cm (5' 5) 09/01/2020 12:4 6 AM ASSISTANT HVAC MECHANIC Body Mass Index 19.1 09/01/2020 12:46 AM ASSISTANT HVAC MECHANIC Plan of Treatment Health Maintenance Due Date Last Done Comments COLOGUARD (AGES 45-75) - COL ON CA SCREENING 1952 COLON MONITORING 1952 COLONOSCOPY - COLON CA SCREENING 1952 CT COLONOGRAPHY - COLON CA SCREENING 1952 Colorectal Cancer Screening 1952 FIT - COLON CA SCREENING 1952 FLEX SIG - COLON CA SCREENING 1952 HEPATITIS C SCREENING 08/23/1970 DTAP/TDAP/TD VACCINES (1 - Tdap) 1971 PNEUMOCOCCAL VACCINE 50+ (1 of 2 - PCV) 1971 ZOSTER VACCINE (1 of 2) 2002 AAA SCREENING 2017 COVID-19 VACCINE (1 - 2023-2 5 season) 2024 DEPRESSION SCREENING 07/12/2024 INFLUENZA VACCINE (#1) 2025 Respiratory Syncytial Virus (RSV) Vaccine Pt: or over 60 yrs (1 - 1-dose 75+ series) 2027 HEPATITIS B VACCINE Aged Out No longe r eligible based on patient's age to complete this topic HIB VACCINE Aged Out No longer eligi ble based on patient's age to complete this topic HPV VACCINE Aged Out No longer eligi ble based on patient's age to complete this topic MENINGOCOCCAL (Group B) VACC INE SHARED DECISION-MAKING Aged Out No longer eligibl e based on patient's age to complete this topic MENINGOCOCCAL GROUPS A/C/Y/W VACCINE Aged Out No longer eligible b ased on patient's age to complete this topic Insurance [facility] * Guarantor: CHERIE RODRIGUEZ Account Type Relation to Patient Date of Phone Billing Address Personal/Family [address] [place] [address] [employer] MEDICARE Advance Directives * DNR - IF PULSELESS NO CPR, NO SHOCK (Latest Code Status on File) Date Activated Date Inactivated Comments 09/01/2020 10:44 AM 09/05/2020 1:19 PM Question Answer Comments : DO NOT discontinue a ny active orders without asking attending physician. * Full Code Date Activated Date Inactivated Comments 02/01/2018 5:25 PM 02/02/2018 4:07 PM Care Teams Store Worker Relationship Specialty Start Date End Date Lebron Storm MD [address] [place] [address] PCP - General Family Medicine 08/29/20 Lebron Storm MD [address] [place] [address] Family Medicine 08/29/20 Naga Serrano MD [address] [place] [address] Cardiology 06/19/14
--- NOTE | 2025-01-16 19:48 | ED_ITS ---
HPI - Fall General Chief Complaint: Fall Stated Complaint: FALL, UNKNOWN LOC Time Seen by Provider: 01/16/25 19:27 History of Present Illness HPI Narrative: Patient is a 74-year-old male who presents emergency department this evening status post a ground level fall. Patient lives at home with family members and was getting out of the shower when he slipped and fell. Patient admits that he did hit his head but denies any loss of consciousness. Denies any lightheadedness or near syncopal/syncopal episodes prior to the fall. States that he usually ambulates without the use of any cane or walkers. Currently moving all extremities spontaneously. Currently denying any symptoms or concerns including any headache, blurry vision, focal weakness, numbness and tingling. No additional symptoms or concerns at this time. Related Data Allergies Allergy/AdvReac Type Severity Reaction Status Date / Time No Known Allergies Allergy Verified 01/16/25 18:40 Review of Systems 2 Review of Systems: All systems are reviewed and are negative unless stated otherwise in the HPI. [facility] Past Medical History Medical History Hypertension with heart disease AAA (abdominal aortic aneurysm) History of ischemic stroke without residual deficits PAD (peripheral artery disease) Surgical History Surgical History History of facial surgery S/P CABG (coronary artery bypass graft) Family History Family History Mother Family history of lung cancer, Onset Age: 61 Family history of alcoholism Sibling Patient's sister is in good health Patient's brother is in good health Grandparent Family history of lung cancer, Onset Age: 66 Diabetes mellitus Other Depression Family history of allergic disorder Family history of irritable bowel syndrome Family history of thyroid disease Social History Social History Smoking packs per day: 1.5 Smoking cigarettes per day: 30.0 Years smoked: 62 Smoking pack-years: 93.00 Smoking status: Former smoker Tobacco type: cigarettes and e-cigarettes/vaping Second hand tobacco smoke exposure: Yes Smoking end date: 01/01/18 Alcohol intake: never Substance use: current Substance use type: marijuana Living arrangements: with family Occupation/Education: retired Gender identity (if verbalized by the patient): Male Exam Narrative: General: Alert, awake, afebrile, in no acute distress. HEENT: PERRL, no rhinorrhea, no post nasal drip, oropharynx clear. Neck: Trachea midline, no JVD, no lymphadenopathy, no midline tenderness to palpation over the cervical spine. Cardiovascular: Regular rate and rhythm, no murmurs, rubs or gallops, no peripheral edema. Respiratory: Clear to auscultation bilaterally, no tachypnea, no wheezing, no rhonchi, no rubs, no respiratory distress. Abdomen: Soft, nontender, nondistended, no rebound, no guarding, no peritoneal signs. Musculoskeletal: No joint swelling or deformity, normal muscle tone. Skin: No rashes or petechia, no signs of infection. Psychiatric: Alert and oriented, normal behavior and judgment for situation. Neurological: Alert and oriented to person, place, and time. Follows all commands. No focal deficits, speech is clear and fluent. Course Vital Signs Vital signs: Vital Signs Temperature 98.6 F 01/16/25 18:35 Pulse Rate 60 01/16/25 18:35 Respiratory Rate 18 01/16/25 18:35 Blood Pressure 130/89 01/16/25 18:35 Pulse Oximetry 100 01/16/25 18:35 Oxygen Delivery Room Air 01/16/25 18:35 Temperature 98.6 F 01/16/25 18:35 Pulse Rate 60 01/16/25 18:35 Respiratory Rate 18 01/16/25 18:35 Blood Pressure 130/89 01/16/25 18:35 Pulse Oximetry 100 01/16/25 18:35 Oxygen Delivery Room Air 01/16/25 18:35 MDM - Fall MDM Narrative Medical decision making narrative: The patient was evaluated by myself in the emergency department. History is obtained from patient who is an independent historian and physical exam was performed. External medical records were reviewed at this time. Imaging studies obtained included CT brain without IV contrast which was independently interpreted by me revealing: FINDINGS: The ventricles are enlarged. The dilatation of the ventricles is proportional to the degree of sulcal prominence, not uncommon in the senescent brain. Decreased attenuation is identified within the periventricular white matter, likely secondary to microvascular ischemic disease, in a patient of this age. There is no mass, mass effect or midline shift. There is no abnormal extra-axial fluid collection or large intracranial hemorrhage. Visualized paranasal sinuses are clear. The mastoid air cells are well aerated. No acute displaced fractures within the overlying cranium. Impression: No large acute intracranial hemorrhage or suspicious mass effect. Differential diagnosis considerations include intracranial hemorrhage, fractures, dislocations. Comorbidities impacting this visit include none. I have evaluated and discussed social determinants of health with the patient that could potentially impact subsequent diagnosis and treatment plans. On repeat assessment of the patient, reevaluation revealed that the patient is doing well and is in no acute distress. Patient symptoms have remained stable since he arrived to our emergency department. Repeat vital signs were all reviewed and noted to be stable. Differential diagnosis and treatment plan were discussed with the patient at bedside. Patient agrees with discussion and after shared medical decision making agrees with discharge. All questions were answered to the patient's satisfaction. Patient will follow up with his PCP in 3-5 days. Patient was provided with strict return precautions and instructed to return to the emergency department if any new or worsening symptoms develop. The patient was discharged in stable condition. Lab Data Labs: Lab Results 01/16/25 Range/Units 18:41 POC Capillary Glucose 141 H (65-105) mg/dl Discharge Plan Discharge Clinical Impression: Fall from ground level, Head injury Patient Disposition: Home Condition: Improved Instructions: Antibiotic Form, Fall Prevention for Older Adults (ED), Head Injury (ED) Additional Instructions: Please follow-up with your family doctor within the next 3-5 days. Return to emergency department if any new or worsening symptoms develop. Patient Language: Belgian Prescriptions: No Action methylprednisolone [Medrol ([place])] 4 mg tablets,dose pack See Rx Instructions PO PER PKG DIR Qty: 21 0RF Rx Instructions: PO PER PKG DIR clopidogrel [Plavix] 75 mg tablet 75 mg PO DAILY Qty: 90 0RF triamcinolone acetonide 0.5 % cream 1 applic topical BID 7 Days Qty: 45 2RF meclizine 25 mg tablet 25 mg PO TID PRN (Reason: motion sickness) Qty: 20 0RF atorvastatin 40 mg tablet See Rx Instructions .ROUTE .COMPLEX Qty: 90 2RF Dose Instruction: TAKE ONE TABLET BY MOUTH DAILY Rx Instructions: TAKE ONE TABLET BY MOUTH DAILY Follow-up/Referrals: Lebron Storm MD [Primary Care Provider] - 3 Days Time of Disposition: 20:12
[2025-01-16 20:22] VITALS: BP 159/74; PULSE 62; RESP 18; O2SAT 99
== END 2025-01-16 20:23 | disposition home or self-care (01) ==
PROVIDERS: Emergency Provider Emergency Medicine; PCP Family Medicine
DX: S09.90XA Unspecified injury of head, initial encounter (principal); I11.9 Hypertensive heart disease without heart failure; Z86.73 Personal history of transient ischemic attack (TIA), and cerebral infarction without residual deficits; W01.0XXA Fall on same level from slipping, tripping and stumbling without subsequent striking against object, initial encounter; Z87.891 Personal history of nicotine dependence; F12.90 Cannabis use, unspecified, uncomplicated; Z95.1 Presence of aortocoronary bypass graft; Z79.899 Other long term (current) drug therapy; Z79.02 Long term (current) use of antithrombotics/antiplatelets
CPT/HCPCS: 70450; 82948; 99284